=== PATIENT | male | born 1975 | race Caucasian/White ===

== ENCOUNTER 2017-08-13 13:13 | Day surgery (SDC) | payer OTHER ==
[2017-08-13 14:32] LABS: ADD MAN DIFF? NO
[2017-08-13 14:34] LABS: WHITE BLOOD COUNT 8.7 10^3/ul (4.8-10.8)
[2017-08-13 14:34] LABS: BASOPHILS % 0.5 % (0.0-2.0); EOSINOPHILS # 0.2 10^3/ul (0.0-0.5); EOSINOPHILS % 2.2 % (0.0-7.0); HEMATOCRIT 46.9 % (42.0-52.0); HEMOGLOBIN 15.9 g/dl (14.0-18.0); LYMPHOCYTES # 2.3 10^3/ul (0.8-2.9); LYMPHOCYTES % 25.9 % (15.0-51.0); MEAN CORPUSCULAR HEMOGLOBIN 30.9 pg (29.0-33.0); MEAN CORPUSCULAR HGB CONC 33.9 g/dl (32.0-37.0); MEAN CORPUSCULAR VOLUME 91.1 fl (82.0-101.0); MEAN PLATELET VOLUME 10.2 fl (7.4-10.4); MONOCYTE # 0.4 10^3/ul (0.3-0.9); MONOCYTES % 5.1 % (0.0-11.0); NEUTROPHIL # 5.7 10^3/ul (1.6-7.5); NEUTROPHILS % 65.8 % (39.0-77.0); PLATELET COUNT 242 10^3/UL (140-415); RED BLOOD COUNT 5.15 10^6/ul (4.70-6.10); RED CELL DISTRIBUTION WIDTH 12.5 % (11.5-14.5)
[2017-08-13 14:53] LABS: ALANINE AMINOTRANSFERASE 61 IU/L (13-69); ALBUMIN 4.1 g/dl (3.3-4.9); ALBUMIN/GLOBULIN RATIO 1.28; ALKALINE PHOSPHATASE 74 IU/L (42-121); ANION GAP 12 (8-16); ASPARTATE AMINO TRANSFERASE 30 IU/L (15-46); BILIRUBIN,INDIRECT 0.5 mg/dl (0-1.1); BILIRUBIN,TOTAL 0.5 mg/dl (0.2-1.3); BLOOD UREA NITROGEN 11 mg/dl (7-20); CALCIUM 9.2 mg/dl (8.4-10.2); CARBON DIOXIDE 26 mmol/L (21-31); CHLORIDE 109 mmol/L (97-110); CREATININE 0.73 mg/dl (0.61-1.24); GLUCOSE 89 mg/dl (70-220); POTASSIUM 4.3 mmol/L (3.5-5.1); SODIUM 143 mmol/L (135-144); TOTAL PROTEIN 7.3 g/dl (6.1-8.1)
[2017-08-13 14:56] LABS: INR 0.96; PROTIME 12.9 Sec (11.9-14.9)
[2017-08-13 14:57] LABS: PARTIAL THROMBOPLASTIN TIME 27.5 Sec (25.0-35.0)
[2017-08-13] MEDS ORDERED: CEFAZOLIN 2 GM/50 ML (PMX) 50 ML IVPB (16:00)
[2017-08-13] MEDS ORDERED: SOD CHLORIDE 0.9% 1,000 ML IV (16:00)
[2017-08-13] MEDS ORDERED: CEFAZOLIN 1 GM INJ (16:52)
[2017-08-13] MEDS ORDERED: NEOSTIGMINE 3 MG/3 ML SYRINGE (16:52)
[2017-08-13] MEDS ORDERED: PROPOFOL 20 ML (16:52)
[2017-08-13] MEDS ORDERED: GLYCOPYRROLATE 0.4 MG INJ (16:52)
[2017-08-13] MEDS ORDERED: ROCURONIUM 50 MG INJ (16:52)
[2017-08-13] MEDS ORDERED: ONDANSETRON 4 MG INJ (16:52)
[2017-08-13] MEDS ORDERED: DEXAMETHASONE 4 MG/ML 1 ML INJ (16:52)
[2017-08-13] MEDS ORDERED: HYDROmorphONE 1 MG/5 ML IV SYRINGE IV ×2 (17:00)
[2017-08-13] MEDS ORDERED: OXYCODONE/ACETAMINOPHEN (5/325) TAB PO ×2 (17:00)
[2017-08-13] MEDS ORDERED: LABETALOL HCL 20MG INJ IV (17:00)
[2017-08-13] MEDS ORDERED: TRIMETHOBENZAMIDE 100 MG/ML VIAL IM (17:00)
[2017-08-13] MEDS ORDERED: DIPHENHYDRAMINE 50 MG INJ IV (17:00)
[2017-08-13] MEDS ORDERED: ONDANSETRON 4 MG INJ IV (17:00)
[2017-08-13] MEDS ORDERED: FENTAnyl 50 MCG/ML VIAL IV ×3 (17:00)
[2017-08-13] MEDS ORDERED: hydrALAzine 20 MG INJ IV (17:00)
[2017-08-13] MEDS ORDERED: MEPERIDINE 25 MG INJ IV (17:00)
[2017-08-13] MEDS ORDERED: MIDAZOLAM 1 MG/ML 2 ML INJ IV (17:00)
[2017-08-13] MEDS ORDERED: EPHEDrine SULFATE 50 MG/5 ML SYG IV (17:00)
[2017-08-13] MEDS ORDERED: MIDAZOLAM 1 MG/ML 2 ML INJ (17:39)
[2017-08-13] MEDS ORDERED: ROPIVACAINE 0.5 % 30 ML VIAL (17:47)
[2017-08-13] MEDS: POLYMYXIN/BACITRACIN 1L IRRIG (18:06)
[2017-08-13] MEDS ORDERED: SUGAMMADEX SODIUM 200 MG/2 ML VIAL IV (18:23)
[2017-08-13] MEDS ORDERED: HYDROCODONE/APAP (5/325) TAB PO (18:30)
[2017-08-13] MEDS ORDERED: ALBUTEROL 0.5% (NEB) 2.5 MG/0.5 ML AMP (18:44)
[2017-08-13] MEDS: IPRATROPIUM (NEB) 0.5 MG/2.5 ML AMP HHN (19:05)
[2017-08-13] MEDS: ALBUTEROL 0.083% (NEB) 2.5 MG/3 ML AMP HHN (19:06)
[2017-08-13] MEDS: HYDROmorphONE 1 MG/5 ML IV SYRINGE IV (19:35)
== END 2017-08-13 21:00 | disposition home or self-care (01) ==
LOC: SDS 13:13
DX: K43.0 Incisional hernia with obstruction, without gangrene (principal); R73.03 Prediabetes; E78.5 Hyperlipidemia, unspecified
CPT/HCPCS: 49655; 80053; 82962; 85025; 85610; 85730; 94664